=== PATIENT | female | born 1985 | race Hispanic/Latino ===

== ENCOUNTER 2021-02-19 16:41 | Emergency (ER) | payer MEDICAID ==
[2021-02-19 17:09] VITALS: BP 124/69
[2021-02-19 18:23] LABS: Basophils # (Auto) 0.1 K/mm3 (0.0-0.1); Basophils % (Auto) 0.5 % (0.0-1.8); Eosinophils # (Auto) 0.1 K/mm3 (0.0-0.4); Eosinophils % (Auto) 0.9 % (0.0-4.3); Hematocrit 38.5 % (30.3-42.9); Hemoglobin 13.4 gm/dl (10.1-14.3); Lymphocytes # (Auto) 1.9 K/mm3 (1.2-5.4); Lymphocytes % (Auto) 14.5 % (13.4-35.0); Mean Corpuscular HGB Conc 35 % (30-34); Mean Corpuscular Volume 90 fl (79-97); Monocytes # (Auto) 0.8 K/mm3 (0.0-0.8); Monocytes % (Auto) 6.1 % (0.0-7.3); Platelet Count 176 K/mm3 (140-440); Red Blood Count 4.26 M/mm3 (3.65-5.03); Red Cell Distribution Width 13.2 % (13.2-15.2)
[2021-02-19 18:41] LABS: Alanine Aminotransferase 20 units/L (7-56); Blood Urea Nitrogen 6 mg/dL (7-17); Calcium 8.8 mg/dL (8.4-10.2); Hemolysis Index 4
--- NOTE | 2021-02-19 18:41 | Ultrasound Report ---
TRANSABDOMINAL OB PELVIC ULTRASOUND INDICATION / CLINICAL INFORMATION: Vaginal bleeding. COMPARISON: None available. FINDINGS: There is a single intrauterine with an estimated gestational age of 10 weeks 6 days by [place] n-rump length. The heart rate is 172 bpm. A yolk sac is present. There is no evidence of implan tation hemorrhage. The uterine cervix is closed. The right ovary measures 4.2 x 1.8 x 2.1 cm and the left ovary 3.7 x 3.1 x 2.3 cm. There is normal bl ood flow to both ovaries on Doppler exam. There is no evidence of adnexal mass or free fluid. IMPRESSION: Single viable 10 week 6 day intrauterine without complication. Signer Name: Louis Nazario MD Signed: 02/19/2021 6:37 PM Workstation Name: [id number]
[2021-02-19 18:45] LABS: BUN/Creatinine Ratio 10
[2021-02-19 19:16] LABS: Bacteria,Urine 1+ /HPF (Negative); Bilirubin,Urine NEG (Negative); Blood,Urine LG (Negative); Color,Urine Amber (Yellow); Mucus,Urine 3+ /HPF
--- NOTE | 2021-02-19 19:23 | Emergency Department Report ---
ED HPI - General Chief complaint: Vaginal Bleeding Stated complaint: 10 WKS BLEEDING/CRAMPING Time Seen by Provider: 02/19/21 17:13 Source: patient Mode of arrival: Ambulatory Limitations: No Limitations - History of Present Illness Initial comments: 35-year-old female patient presents with complaints of vaginal bleeding in x3 days. Patient states on Sunday she took an pill, however the next day she did not want to go through with the and was then placed on progesterone. She states the bleeding began the next day on Sunday. She states the bleeding is mild and she is using 1-2 pads a day. Mild abdominal cramping also per patient. She denies any nausea/vomiting, dysuria/hematuria/urinary frequency, dyspareunia, or fever/chills/sweats. She is G4, . -: Sudden - Related Data Allergies Allergy/AdvReac Type Severity Reaction Status Date / Time No Known Allergies Allergy Verified 02/19/21 17:08 ED Review of Systems ROS: Stated complaint: 10 WKS BLEEDING/CRAMPING Other details as noted in HPI Constitutional: denies: chills, fever Respiratory: denies: cough, shortness of breath Cardiovascular: denies: chest pain Gastrointestinal: denies: nausea, vomiting Genitourinary: abnormal menses. denies: urgency, dysuria, frequency, hematuria, dyspareunia Musculoskeletal: denies: back pain Skin: denies: change in color ED Physical Exam - General Limitations: No Limitations General appearance: alert, in no apparent distress - Head Head exam: Present: atraumatic, normocephalic - Eye Eye exam: Present: normal appearance. Absent: scleral icterus - Neck Neck exam: Present: full ROM - Respiratory Respiratory exam: Present: normal lung sounds bilaterally. Absent: respiratory distress - Cardiovascular Cardiovascular Exam: Present: regular rate, normal rhythm - GI/Abdominal GI/Abdominal exam: Present: soft, normal bowel sounds. Absent: distended, tenderness, guarding, rebound, rigid - Extremities Exam Extremities exam: Present: full ROM - Back Exam Back exam: Present: normal inspection - Neurological Exam Neurological exam: Present: alert, oriented X3 - Psychiatric Psychiatric exam: Present: normal affect, normal mood - Skin Skin exam: Present: warm, dry, intact, normal color. Absent: rash ED Course Vital Signs 02/19/21 17:08 Temperature 98.8 F Pulse Rate 91 H Respiratory 16 Rate Blood Pressure 124/69 [Left] O2 Sat by Pulse 100 Oximetry ED Medical Decision Making - Lab Data Result diagrams: 02/19/21 18:06 02/19/21 18:06 Lab Results 02/19/21 02/19/21 02/19/21 Range/Units 18:06 18:06 18:06 WBC 13.2 H (4.5-11.0) K/mm3 RBC 4.26 (3.65-5.03) M/mm3 Hgb 13.4 (10.1-14.3) gm/dl Hct 38.5 (30.3-42.9) % MCV 90 (79-97) fl MCH 31 (28-32) pg MCHC 35 H (30-34) % RDW 13.2 (13.2-15.2) % Plt Count 176 (140-440) K/mm3 Lymph % (Auto) 14.5 (13.4-35.0) % [place] % (Auto) 6.1 (0.0-7.3) % Eos % (Auto) 0.9 (0.0-4.3) % Baso % (Auto) 0.5 (0.0-1.8) % Lymph # (Auto) 1.9 (1.2-5.4) K/mm3 [place] # (Auto) 0.8 (0.0-0.8) K/mm3 Eos # (Auto) 0.1 (0.0-0.4) K/mm3 Baso # (Auto) 0.1 (0.0-0.1) K/mm3 Seg Neutrophils % 78.0 H (40.0-70.0) % Seg Neutrophils # 10.3 H (1.8-7.7) K/mm3 Sodium (137-145) mmol/L Potassium (3.6-5.0) mmol/L Chloride (98-107) mmol/L Carbon Dioxide (22-30) mmol/L Anion Gap mmol/L BUN (7-17) mg/dL Creatinine (0.6-1.2) mg/dL Estimated GFR ml/min BUN/Creatinine Ratio % Glucose (65-100) mg/dL Calcium (8.4-10.2) mg/dL Total Bilirubin (0.1-1.2) mg/dL AST (5-40) units/L ALT (7-56) units/L Alkaline Phosphatase (35-129) units/L Total Protein (6.3-8.2) g/dL Albumin (3.9-5) g/dL Albumin/Globulin Ratio % HCG, Qual Positive (Negative) HCG, Quant 56815 H (0-4) mIU/mL Urine Color (Yellow) Urine Turbidity (Clear) Urine pH (5.0-7.0) Ur Specific [place] (1.003-1.030) Urine Protein (Negative) mg/dL Urine Glucose (UA) (Negative) mg/dL Urine Ketones (Negative) mg/dL Urine Blood (Negative) Urine Nitrite (Negative) Urine Bilirubin (Negative) Urine Urobilinogen (<2.0) mg/dL Ur Leukocyte Esterase (Negative) Urine WBC (Auto) (0.0-6.0) /HPF Urine RBC (Auto) (0.0-6.0) /HPF U Epithel Cells (Auto) (0-13.0) /HPF Urine Bacteria (Auto) (Negative) /HPF Urine Mucus /HPF Blood Type 02/19/21 02/19/21 02/19/21 Range/Units 18:06 18:06 Unknown WBC (4.5-11.0) K/mm3 RBC (3.65-5.03) M/mm3 Hgb (10.1-14.3) gm/dl Hct (30.3-42.9) % MCV (79-97) fl MCH (28-32) pg MCHC (30-34) % RDW (13.2-15.2) % Plt Count (140-440) K/mm3 Lymph % (Auto) (13.4-35.0) % [place] % (Auto) (0.0-7.3) % Eos % (Auto) (0.0-4.3) % Baso % (Auto) (0.0-1.8) % Lymph # (Auto) (1.2-5.4) K/mm3 [place] # (Auto) (0.0-0.8) K/mm3 Eos # (Auto) (0.0-0.4) K/mm3 Baso # (Auto) (0.0-0.1) K/mm3 Seg Neutrophils % (40.0-70.0) % Seg Neutrophils # (1.8-7.7) K/mm3 Sodium 135 L (137-145) mmol/L Potassium 4.1 (3.6-5.0) mmol/L Chloride 97.2 L (98-107) mmol/L Carbon Dioxide 26 (22-30) mmol/L Anion Gap 16 mmol/L BUN 6 L (7-17) mg/dL Creatinine 0.6 (0.6-1.2) mg/dL Estimated GFR > 60 ml/min BUN/Creatinine Ratio 10 % Glucose 85 (65-100) mg/dL Calcium 8.8 (8.4-10.2) mg/dL Total Bilirubin 0.30 (0.1-1.2) mg/dL AST 26 (5-40) units/L ALT 20 (7-56) units/L Alkaline Phosphatase 91 (35-129) units/L Total Protein 7.0 (6.3-8.2) g/dL Albumin 4.0 (3.9-5) g/dL Albumin/Globulin Ratio 1.3 % HCG, Qual (Negative) HCG, Quant (0-4) mIU/mL Urine Color [place] (Yellow) Urine Turbidity Cloudy (Clear) Urine pH 6.0 (5.0-7.0) Ur Specific [place] 1.027 (1.003-1.030) Urine Protein 30 mg/dl (Negative) mg/dL Urine Glucose (UA) Neg (Negative) mg/dL Urine Ketones Neg (Negative) mg/dL Urine Blood Lg (Negative) Urine Nitrite Neg (Negative) Urine Bilirubin Neg (Negative) Urine Urobilinogen 4.0 (<2.0) mg/dL Ur Leukocyte Esterase Neg (Negative) Urine WBC (Auto) 2.0 (0.0-6.0) /HPF Urine RBC (Auto) 9.0 (0.0-6.0) /HPF U Epithel Cells (Auto) 5.0 (0-13.0) /HPF Urine Bacteria (Auto) 1+ (Negative) /HPF Urine Mucus 3+ /HPF Blood Type O POSITIVE - Radiology Data Radiology results: report reviewed TRANSABDOMINAL OB PELVIC ULTRASOUND INDICATION / CLINICAL INFORMATION: Vaginal bleeding. COMPARISON: None available. FINDINGS: There is a single intrauterine with an estimated gestational age of 10 weeks 6 days by crown-rump length. The heart rate is 172 bpm. A yolk sac is present. There is no evidence of implantation hemorrhage. The uterine cervix is closed. The right ovary measures 4.2 x 1.8 x 2.1 cm and the left ovary 3.7 x 3.1 x 2.3 cm. There is normal blood flow to both ovaries on Doppler exam. There is no evidence of adnexal mass or free fluid. IMPRESSION: Single viable 10 week 6 day intrauterine without complication. - Medical Decision Making 35-year-old female patient presents with complaints of vaginal bleeding in x3 days. Patient states on Sunday she took an pill, however the next day she did not want to go through with the and was then placed on progesterone. She states the bleeding began the next day on Sunday. She states the bleeding is mild and she is using 1-2 pads a day. Mild abdominal cramping also per patient. She denies any nausea/vomiting, dysuria/hematuria/urinary frequency, dyspareunia, or fever/chills/sweats. She is G4, . Ultrasound shows 10-week 6-day IUP without complication. Labs are negative for any significant abnormalities. Bleeding likely due to pill, however patient is to continue on progesterone until further instructions by her CONSTRUCTION EXECUTIVE. Her vitals are normal, she is well-appearing, she is stable for discharge home. Discussed signs and symptoms that should prompt immediate return to the emergency department in detail with patient who verbalizes understanding. Critical care attestation.: If time is entered above; I have spent that time in minutes in the direct care of this critically ill patient, excluding procedure time. ED Disposition Clinical Impression: Vaginal bleeding during Disposition: DC-01 TO HOME OR SELFCARE Is pt being admited?: No Condition: Stable Instructions: Vaginal Bleeding During , First Trimester, Activity Restriction During Additional Instructions: Follow-up with your CONSTRUCTION EXECUTIVE within 1 week Referrals: PRIMARY CAREMD [Primary Care Provider] - 3-5 Days
[2021-02-19 20:49] LABS: Bacteria,Urine 1+ /HPF (Negative); Bilirubin,Urine NEG (Negative); Blood,Urine LG (Negative); Color,Urine Red (Yellow); Mucus,Urine FEW /HPF
[2021-02-19 20:51] LABS: Protein,Urine >500 mg/dL (Negative); RBC,Urine > 182.0 /HPF (0.0-6.0)
== END 2021-02-19 20:00 | disposition home or self-care (01) ==
LOC: ED 16:41
DX: O20.9 Hemorrhage in early pregnancy, unspecified (principal); Z3A.10 10 weeks gestation of pregnancy
CPT/HCPCS: 36415; 76801; 76817; 80053; 81001; 84702; 84703; 85025; 86900; 86901; 87086; 99284

== ENCOUNTER 2021-02-23 12:37 | Emergency (ER) | payer MEDICAID ==
--- NOTE | 2021-02-23 13:12 | Emergency Department Report ---
ED Female HPI - General Chief complaint: Vaginal Bleeding Stated complaint: 11 WEEKS , VAGINAL BLEEDING, BAD CRAMPING Time Seen by Provider: 02/23/21 13:06 Source: patient Mode of arrival: Ambulatory Limitations: No Limitations - History of Present Illness Initial comments: Patient is a 35-year-old female that returns to the ER for serial quant and ultrasound. She has been having vaginal bleeding and some clotting for 1 week. She was here 48 hours ago and had a work-up. hCG was high and ultrasound was completed. Refer to EMR. The provider told her she needed repeat exam in 48 hours so she returns to the ER. She states that she did not go to [facility] because they expect payment. Patient states that she has had persistent light spotting with some clots in the morning. She has abdominal cramping such as with menses. She denies passing any tissue. She did denies any fever or chills. Her vital signs are normal on arrival to [facility]. Labs and repeat ultrasound been ordered. Complaint: vaginal bleeding -: Gradual, days(s) Radiation: non-radiating Severity: mild Quality: cramping Consistency: intermittent Improves with: none Worsens with: none Are you Now?: Yes Associated Symptoms: vaginal bleeding, other (Abdominal cramping). denies: vaginal discharge, abdominal pain, nausea/vomiting, fever/chills, headaches, loss of appetite, dysuria, hematuria, rash, seizure, shortness of breath, syncope, weakness - Related Data Allergies Allergy/AdvReac Type Severity Reaction Status Date / Time No Known Allergies Allergy Verified 02/19/21 17:08 ED Review of Systems ROS: Stated complaint: 11 WEEKS , VAGINAL BLEEDING, BAD CRAMPING Other details as noted in HPI Comment: All other systems reviewed and negative ED Past Medical Hx - Past Medical History Previous Medical History?: Yes Hx Asthma: Yes - Surgical History Past Surgical History?: Yes Additional Surgical History: hernia repair - Family History Family history: no significant - Social History Smoking Status: Never Smoker Substance Use Type: None ED Physical Exam - General Limitations: No Limitations General appearance: alert, in no apparent distress - Head Head exam: Present: atraumatic, normocephalic - Eye Eye exam: Present: normal appearance - ENT ENT exam: Present: mucous membranes moist - Neck Neck exam: Present: normal inspection - Respiratory Respiratory exam: Present: normal lung sounds bilaterally. Absent: respiratory distress - Cardiovascular Cardiovascular Exam: Present: regular rate, normal rhythm. Absent: systolic murmur, diastolic murmur, rubs, gallop - GI/Abdominal GI/Abdominal exam: Present: soft, normal bowel sounds - Extremities Exam Extremities exam: Present: normal inspection - Back Exam Back exam: Present: normal inspection - Neurological Exam Neurological exam: Present: alert, oriented X3 - Psychiatric Psychiatric exam: Present: normal affect, normal mood - Skin Skin exam: Present: warm, dry, intact, normal color. Absent: rash ED Course Vital Signs 02/23/21 02/23/21 13:00 16:38 Temperature 98.6 F Pulse Rate 94 H 65 Respiratory 18 Rate Blood Pressure 133/73 119/81 [Right] O2 Sat by Pulse 96 98 Oximetry ED Medical Decision Making - Lab Data Result diagrams: 02/23/21 13:42 - Radiology Data Radiology results: report reviewed, image reviewed see report - Medical Decision Making Labs 02/23/21 02/23/21 02/23/21 13:42 13:42 13:42 WBC 13.7 H RBC 3.95 Hgb 12.0 Hct 35.5 MCV 90 MCH 30 MCHC 34 RDW 13.3 Plt Count 161 Lymph % (Auto) 10.1 L [place] % (Auto) 7.2 Eos % (Auto) 0.8 Baso % (Auto) 0.1 Lymph # (Auto) 1.4 [place] # (Auto) 1.0 H Eos # (Auto) 0.1 Baso # (Auto) 0.0 Seg Neutrophils % 81.8 H Seg Neutrophils # 11.2 H HCG, Quant 50346 H Blood Type O POSITIVE Ord Rhogam Gestat Weeks Rh pos Vital Signs 02/23/21 13:00 Temperature 98.6 F Pulse Rate 94 H Respiratory 18 Rate Blood Pressure 133/73 [Right] O2 Sat by Pulse 96 Oximetry labs noted rh pos b hcg is increasing us noted- IUP, no subchorionic hemorrhage, normal heart rate. Per radiology recs ongoing follow-up recommended. I had a long discussion with the patient about vaginal bleeding and cramping in . I explained to her that given that she is 12 weeks that even if she was actively miscarrying there is nothing that a medical person could do to stop the miscarriage. I explained to her that much of the care is a watch and wait situation at this time dc home with obgyn follow up in 48 hours--I have discussed at length with the patient that she needs to follow-up with a specialist, [facility], for her ongoing care. I have explained to her that they will work with her on her Medicaid concerns. I have explained to her that the emergency room is a temporizing option but is not definitive management and treatment. She verbalizes understanding. I have given her a written copy of her hCG levels and record of her Rh+ status as well as the baby's heart rate on today's ultrasound. I referred her to the on-call [facility], told her to tell them that we have seen her twice, and they will see her given she is an ER patient. She verbalizes understanding. - Differential Diagnosis ro ab Critical care attestation.: If time is entered above; I have spent that time in minutes in the direct care of this critically ill patient, excluding procedure time. ED Disposition Clinical Impression: Vaginal bleeding during Disposition: DC-01 TO HOME OR SELFCARE Is pt being admited?: No Does the pt Need Aspirin: No Condition: Stable Instructions: Activity Restriction During Additional Instructions: Beta quant levels noted in Reading to the right of this typing. hCG level has increased Rh status is positive. Heart rate noted to be normal. Pelvic rest Tylenol for pain Aloe up with [facility] for ongoing care. Referral below as we discussed. Referrals: JACQUIE KEMP MD [Staff Physician] - 3-5 Days Time of Disposition: 15:35
[2021-02-23 14:21] LABS: Basophils % (Auto) 0.1 % (0.0-1.8); Eosinophils # (Auto) 0.1 K/mm3 (0.0-0.4); Eosinophils % (Auto) 0.8 % (0.0-4.3); Hematocrit 35.5 % (30.3-42.9); Lymphocytes # (Auto) 1.4 K/mm3 (1.2-5.4); Lymphocytes % (Auto) 10.1 % (13.4-35.0); Mean Corpuscular HGB Conc 34 % (30-34); Mean Corpuscular Volume 90 fl (79-97); Monocytes % (Auto) 7.2 % (0.0-7.3); Platelet Count 161 K/mm3 (140-440); Red Blood Count 3.95 M/mm3 (3.65-5.03); Red Cell Distribution Width 13.3 % (13.2-15.2)
[2021-02-23 16:39] VITALS: BP 119/81
--- NOTE | 2021-02-23 16:42 | Ultrasound Report ---
ULTRASOUND OBSTETRIC INDICATION / CLINICAL INFORMATION: worsening vag bleed in preg. Clinical Gestational Age (GA): 11.1 weeks.days TECHNIQUE: Transabdominal and Transvaginal. COMPARISON: 02/19/2021 FINDINGS: GESTATIONAL SAC: Well-defined oval shape and intrauterine in location. EMBRYO/FETUS: No significant abnormality. - [place]-Rump Length = 4.3 cm = 11.1 weeks.days - Heart Rate, beats per minute (if present) = 165 ADNEXA: No significant abnormality. FREE FLUID: None. ADDITIONAL FINDINGS: There is questionable prominent blood flow at the fundal placenta visualized on the cine clips. Cervix is slightly difficult to visualize on this examination, however appear short a t 2.0 cm. IMPRESSION: 1. Single, living intrauterine with estimated sonographic age of 11.1 weeks.days. 2. Questionable prominent blood flow predominantly at the fundal placenta. Given this patients histor y off vaginal bleeding, placental abruption should be considered. 3. Cervix appears short at 2.0 cm. Recommend continued follow-up. CRITICAL RESULT: Time of Discovery (DIRECTOR TEEN POST/CDT): 1520 Time of Communication (DIRECTOR TEEN POST/CDT): 1530 Licensed Practitioner Receiving Report: DOMINICK Eagle Read-Back Performed: Yes. Signer Name: Louis Pham MD Signed: 02/23/2021 4:37 PM Workstation Name: [id number]
--- NOTE | 2021-02-23 16:42 | Ultrasound Report ---
ULTRASOUND OBSTETRIC INDICATION / CLINICAL INFORMATION: worsening vag bleed in preg. Clinical Gestational Age (GA): 11.1 weeks.days TECHNIQUE: Transabdominal and Transvaginal. COMPARISON: 02/19/2021 FINDINGS: GESTATIONAL SAC: Well-defined oval shape and intrauterine in location. EMBRYO/FETUS: No significant abnormality. - [place]-Rump Length = 4.3 cm = 11.1 weeks.days - Heart Rate, beats per minute (if present) = 165 ADNEXA: No significant abnormality. FREE FLUID: None. ADDITIONAL FINDINGS: There is questionable prominent blood flow at the fundal placenta visualized on the cine clips. Cervix is slightly difficult to visualize on this examination, however appear short a t 2.0 cm. IMPRESSION: 1. Single, living intrauterine with estimated sonographic age of 11.1 weeks.days. 2. Questionable prominent blood flow predominantly at the fundal placenta. Given this patients histor y off vaginal bleeding, placental abruption should be considered. 3. Cervix appears short at 2.0 cm. Recommend continued follow-up. CRITICAL RESULT: Time of Discovery (SEO ASSOCIATE/CDT): 1520 Time of Communication (SEO ASSOCIATE/CDT): 1530 Licensed Practitioner Receiving Report: DOMINICK Eagle Read-Back Performed: Yes. Signer Name: Louis Pham MD Signed: 02/23/2021 4:37 PM Workstation Name: [id number]
--- NOTE | 2021-02-23 22:15 | Event Note ---
Date: 02/23/21 Patient was evaluated in the emergency department on February 23, 2021. After she was discharged, radiologist contacted the emergency department to notify provider of abnormal ultrasound results. Spoke with radiologist, who noted questionable prominent blood flow predominantly at the fundal placenta as well as shortened (2.0 cm) cervix, possibly suggestive of placental abruption. Contacted the patient's treating provider -- clinical presentation was reportedly not consistent with this diagnosis. Case discussed with attending emergency physician, who recommended contacting the patient and asking her to return to the emergency department for re-evaluation. Patient was contacted and ultrasound results were discussed. She was offered the opportunity to return to the emergency department for further evaluation and management. However, patient politely refused to return after expressing a preference to follow-up with bed and breakfast innkeeper as previously discussed with her ED provider. The patient's medical records from her ED evaluation on 02/19/21 and 02/23/21 were reviewed and discussed with sped teacher carton wrapper, who agreed outpatient follow-up is reasonable given her early gestational age, normal hemoglobin, increasing beta hCG, and hemodynamic stability. Etiology of patient's bleeding reportedly more likely attributable to combination of pharmacologically induced on 02/14 followed immediately by administration of progesterone the following day after patient changed her mind about terminating the . Consultation with sped teacher was also discussed with the patient by telephone. All of her questions were satisfactorily answered. Emphasized the importance of contacting bed and breakfast innkeeper for follow-up within 24 hours of discharge home. Patient expressed understanding and is agreeable to plan of care.
== END 2021-02-23 16:10 | disposition home or self-care (01) ==
LOC: ED 12:37
DX: O20.9 Hemorrhage in early pregnancy, unspecified (principal); J45.909 Unspecified asthma, uncomplicated; Z98.890 Other specified postprocedural states; Z3A.11 11 weeks gestation of pregnancy; Z79.899 Other long term (current) drug therapy
CPT/HCPCS: 36415; 76801; 76817; 84702; 85025; 86900; 86901; 99283